=== PATIENT | female | born 1980 | race Caucasian/White ===

== ENCOUNTER 2022-03-04 03:00 | Emergency (ER) | payer OTHER ==
[~2022-03-04] VITALS: Ht 167.6 cm; Wt 92.5 kg
[~2022-03-04 03:00] MED LIST: ALDOMET250 MG; AVAPRO150 MG; CIPRO500 MG PO; FIORICET 50-301 EACH PO; FIORICET TABLET1 TAB; FLAGYL PO; INTESTINEX1 CAP PO; KLONOPIN2 MG/TAB PO; PHENERGAN25 MG/M1 IM; PROZAC10 MG PO; TORADOL60 MG IM; ZANTAC 7575 MG PO
[2022-03-04] MEDS ORDERED: SYNTHROID50 MCG PO (03:08)
== END 2022-03-04 05:48 | disposition home or self-care (01) ==
LOC: ER 03:00
DX: R10.11 Right upper quadrant pain (principal); Z91.010 Allergy to peanuts

== ENCOUNTER 2022-04-22 07:42 | Inpatient (IN) | payer OTHER ==
[~2022-04-22] VITALS: Ht 167.6 cm; Wt 93.4 kg
[~2022-04-22 07:42] MED LIST changes: +SYNTHROID50 MCG PO
--- NOTE | 2022-04-22 08:46 | NUR ---
SE RECIBE PTE ALERTA Y ESTABLE X3 LA MISMA REFIERE SENTIR UN DOLOR ABDMINAL DEL LADO DERECHO QUE SE INTENSIFICA EN LA ESCALA DEL DOLOR HASTA EL 10. EL MISMO LE COMENZO A LAS 5 DE LA MANANA DEL CASEY DE [place] QUE A TRATADO CON TORADOL IM A LAS 4:30 AM Y NO LE ALIVIO EL DOLOR.
--- NOTE | 2022-04-22 09:54 | NUR ---
RN SCHULTZ ORIENTA A PTE SOBRE TRATAMIENTO E INSTRUCCIONES A SEGUIR, JANAE REFIERE ENTENDER. LE COLECTA MUESTRAS, SE CANALIZA Y SE ADMINISTRA MEDICAMENTO CHAVEZ ORDEN MEDICA
== END 2022-04-26 12:59 | disposition home or self-care (01) | DRG 419 ==
LOC: ER 07:42 → MEDI 18:30 → MEDJ 18:30 → MEDI 21:37
PROVIDERS: Surgery; ADMIT Internal Medicine; ATTEND Internal Medicine
PROC: BW40ZZZ Ultrasonography of Abdomen (ICD-10-PCS; 2022-04-22)
PROC: BF37ZZZ Magnetic Resonance Imaging (MRI) of Pancreas (ICD-10-PCS; 2022-04-22)
PROC: 0FT44ZZ Resection of Gallbladder, Percutaneous Endoscopic Approach (ICD-10-PCS; principal; 2022-04-24 19:00)
DX: K80.64 Calculus of gallbladder and bile duct with chronic cholecystitis without obstruction (principal); K82.8 Other specified diseases of gallbladder; I10 Essential (primary) hypertension; E03.9 Hypothyroidism, unspecified; Z20.822 Contact with and (suspected) exposure to COVID-19